=== PATIENT | male | born 1985 | race Caucasian/White ===

== ENCOUNTER 2021-09-11 22:15 | Emergency (ER) | payer OTHER, SELFPAY ==
[2021-09-11 22:26] VITALS: BP 151/130; PULSE 121; RESP 95; TEMP 36.8; O2SAT 96
[2021-09-11] MEDS: Balanced Salt Solution 15 ML BTL OP (22:42)
--- NOTE | 2021-09-11 22:57 | W.ED.GENAD ---
Discharge Plan Disposition Patient Disposition: HOME Condition: Stable Discharge Details Clinical Impression: Foreign body in eyeball, right Primary Care Provider: None,None ED Provider: Sabine Pappas Home Meds and New Rx's Prescriptions: No Action oxycodone 15 MG tablet 15 - 30 mg PO Q4H PRN PRNQty: 36 polyethylene glycol 3350 17 GM powder in packet 17 gm PO BID PRN PRN (Reason: Constipation) 0RF ibuprofen 800 MG tablet 800 mg PO TID Qty: 90 1RF acetaminophen [Mapap Extra Strength] 500 MG tablet 1,000 mg PO Q8H Qty: 100 3RF docusate sodium [Colace] 100 MG capsule 100 mg PO BID Qty: 20 0RF gabapentin 300 MG capsule 300 mg PO TID Qty: 90 1RF methadone 10 MG/ML concentrate 100 mg PO BID@0800,1800 0RF enoxaparin [Lovenox] 40 MG/0.4 ML syringe 40 mg Sub-Q DAILY@0800 Qty: 14 1RF naloxone [Narcan] 4 MG spray,non-aerosol 4 mg NS DIRECTED Qty: 2 0RF Rx Instructions: One spray (4mg) intranasally into one nostril. May repeat in new nostril once after initial dose in 2-3 minutes. Discharge Instructions Instructions: Eye Foreign Body (ED) Additional Instructions: Use the antibiotic ointment 4 times daily while awake. Wear sunglasses or patch the eye for comfort. Follow up with [facility] eye care Tuesday or , Call them first thing Tuesday am. Please take Tylenol or Ibuprofen with food every 4-6 hours as needed for pain and swelling. [facility] - [address] [place] [address] Stand Alone Forms: Work Release Medical Decision Making Foreign body visualized under [place] lamp exam with fluorescein. No uptake in diet. No abrasion noted. Does have multiple small specks noted around his pupil. No rust ring noted. 1 foreign body was removed with Q-tip. Unable to remove fully remove the other foreign bodies. Patient was given erythromycin ointment here in the department and instructed on home care and follow-up with [facility] on Tuesday or soon as possible. HPI General Mode of arrival: ambulatory. Date/Time Provider Initiated Documentation: 09/11/21 22:17. Limitations to Documentation: no limitations. Information obtained by: patient. HPI Narrative: Patient here with FB sensation to right eye which began at 8 p while grinding some metal while at work. He reports foreign body sensation to his eye and increase tearing and pain. He did not take any medications prior to arrival. He is somewhat diaphoretic upon initial exam. Pupil is PERRLA. Related Data Home Medications Medication Instructions Recorded Confirmed acetaminophen 500 mg tablet (Mapap 1,000 mg PO Q8H ##100 11/07/17 Extra Strength) docusate sodium 100 mg capsule 100 mg PO BID ##20 11/07/17 (Colace) enoxaparin 40 mg/0.4 mL 40 mg (0.4 mL) subcut DAILY@0800 11/07/17 subcutaneous syringe (Lovenox) ##14 gabapentin 300 mg capsule 300 mg PO TID ##90 11/07/17 ibuprofen 800 mg tablet 800 mg PO TID ##90 11/07/17 methadone 10 mg/mL oral concentrate 100 mg (10 mL) PO BID@0800,1800 11/07/17 naloxone 4 mg/actuation nasal 4 mg NS DIRECTED #2 sprays 11/07/17 spray (Narcan) polyethylene glycol 3350 17 gram 17 gm PO BID PRN PRN Constipation 11/07/17 oral powder packet oxycodone 15 mg tablet 15 - 30 mg PO Q4H PRN PRN #36 tabs 11/10/17 Previous Rx's Medication Instructions Recorded acetaminophen 500 mg tablet (Mapap 1,000 mg PO Q8H ##100 11/07/17 Extra Strength) docusate sodium 100 mg capsule 100 mg PO BID ##20 11/07/17 (Colace) enoxaparin 40 mg/0.4 mL 40 mg (0.4 mL) subcut DAILY@0800 11/07/17 subcutaneous syringe (Lovenox) ##14 gabapentin 300 mg capsule 300 mg PO TID ##90 11/07/17 ibuprofen 800 mg tablet 800 mg PO TID ##90 11/07/17 methadone 10 mg/mL oral concentrate 100 mg (10 mL) PO BID@0800,1800 11/07/17 naloxone 4 mg/actuation nasal 4 mg NS DIRECTED #2 sprays 11/07/17 spray (Narcan) polyethylene glycol 3350 17 gram 17 gm PO BID PRN PRN Constipation 11/07/17 oral powder packet Allergies Allergy/AdvReac Type Severity Reaction Status Date / Time No Known Allergies Allergy Unverified 11/04/17 16:03 General Stated Complaint: EyeProblem RAMANDEEP: 4 Review of Systems All systems reviewed & are unremarkable except as noted in HPI and below Eyes Eyes: Reports as per HPI, Reports irritation and Reports eye pain PFSH All Active Problems (Updated 09/11/21 @ 23:11 by Sabine Pappas) Foreign body in eyeball, right (Acute) Social History Smoking/Tobacco Use Status: Never Smoking risk assessment performed?: Yes Drug use: Never Do you feel safe in your relationship?: Yes Exam Eyes General: appearance normal, both eyes and all related structures Alignment and Position: alignment normal Periorbital: periorbital findings normal Eyelids: eyelids normal Conjunctivae: conjunctival abnormality right conjunctival injection diffuse Cornea: corneas abnormal on the right fluorescein used and foreign body (3 small specks) metallic and fluorescein used Pupils: PERRL Direct ophthalmoscopy: normal light reflex Eyes/upper lids images: 1. Foreign body visualized under fluorescein 2. Foreign Body noted 3. Foreign body, no abrasion, no rust ring Course Vital Signs Vital signs: Vital Signs Temperature 36.8 C 09/11/21 22:26 Pulse 121 H 09/11/21 22:26 Respiratory Rate 95 H 09/11/21 22:26 Blood Pressure 151/130 H 09/11/21 22:26 Pulse Oximetry 96 09/11/21 22:26 Temperature 36.8 C 09/11/21 22:26 Pulse 121 H 09/11/21 22:26 Respiratory Rate 95 H 09/11/21 22:26 Blood Pressure 151/130 H 09/11/21 22:26 Blood Pressure Position Sitting 09/11/21 22:26 Pulse Oximetry 96 09/11/21 22:26 Oxygen Delivery Method Room Air 09/11/21 22:26 Oxygen Flow Rate 0 09/11/21 22:26 Pain Level 0 09/11/21 22:26
[2021-09-11] MEDS: Erythromycin Ophth Oint 3.5 GM TUBE OD (23:07)
== END 2021-09-11 23:23 | disposition home or self-care (01) ==
PROVIDERS: Emergency Provider Registered Nurse Emergency
DX: T15.81XA Foreign body in other and multiple parts of external eye, right eye, initial encounter (principal); X58.XXXA Exposure to other specified factors, initial encounter
CPT/HCPCS: 99283

== ENCOUNTER 2022-02-08 19:33 | Emergency (ER) | payer MEDICAID, SELFPAY ==
[2022-02-08 19:55] VITALS: BP 127/77; PULSE 62; RESP 16; TEMP 36.8; O2SAT 98
--- NOTE | 2022-02-08 20:15 | DI.RAD_ITS ---
Exam(s) XR RIBS LT PA CHEST 3V EXAM: XR RIBS LT PA CHEST 3V CLINICAL HISTORY: fall, left lower rib pain TECHNIQUE: 2D digital imaging was performed. Three images are obtained. COMPARISON: CR CHEST 2 VIEWS PA,LAT from 07/13/2017 FINDINGS: MEDIASTINUM: Normal. HEART: Normal. PULMONARY VASCULATURE: Normal. LUNGS: Clear. PLEURAL SPACE: No pleural effusion or pneumothorax. BONE:Within normal limits for the patient's age. LEFT RIBS: Minimally displaced fractures involving the anterior aspects of the left 8th and 9th ribs. OTHER FINDINGS:Normal. IMPRESSION: 1. No acute pulmonary findings. 2. Minimally displaced fractures involving the anterior aspects of the left 8th and 9th ribs. 3. No pneumothorax. DATA REPOSITORY: RADIATION DOSE DELIVERED:
[2022-02-08] MEDS: Ketorolac 15 MG/ML VIAL IM (20:28)
--- NOTE | 2022-02-08 20:32 | ED.GENADUL_ITS ---
Discharge Plan Disposition Patient Disposition: HOME Condition: Improving Discharge Details Chief Complaint: Trauma Clinical Impression: Closed rib fracture Primary Care Provider: None,None ED Provider: Tito Parks Home Meds and New Rx's Prescriptions: No Action ibuprofen 800 MG tablet 800 mg PO TID Qty: 90 1RF methadone 10 MG/ML concentrate 120 mg PO BID@0800,1800 acetaminophen 500 mg Tablet 500 mg PO Q6H PRN Excedrin Migraine 250-250-65 mg Tablet 1 - 2 tab PO DAILY PRN Discharge Instructions Instructions: Rib Fracture (ED) Additional Instructions: Please follow-up with your primary care physician. Please return to the emergency department for any worsening symptoms. Medical Decision Making 36-year-old male presents over 1 week after falling down some stairs while drinking, fell onto his left side striking left chest wall, since then has had some numbness to anterior abdominal wall skin denies abdominal pain nausea vomiting does have residual chest discomfort at site of chest wall injury, tenderness to palpation mild in nature over left anterior lateral ribs no ecchymosis no crepitus, patient has normal chest wall excursion equal breath sounds bilaterally hemodynamically stable no ecchymosis noted. Consider rib contusion with neuropraxia of thoracic nerve versus rib fracture, low suspicion for intra-abdominal pathology such as ruptured spleen injured viscus or thoracic trauma such as pulmonary contusion or pneumothorax. Will obtain screening x-ray rib series, analgesia likely home with close follow-up 21: 58 evidence of eighth and ninth rib fracture of the left without pneumothorax. Patient resting comfortably feeling better after Toradol. Home care instructions and return precautions given HPI General Date/Time Provider Initiated Documentation: 02/08/22 19:59 . HPI Narrative: 36-year-old male presents approximately 1 week after falling down some stairs while he was drinking, fell to his left side hitting his left chest wall, since then has felt some numbness to his left anterior abdominal wall and pain to his left lower ribs. Denies nausea vomiting abdominal pain or other systemic signs of illness Related Data Home Medications Medication Instructions Recorded Confirmed ibuprofen 800 mg tablet 800 mg PO TID ##90 11/07/17 02/08/22 acetaminophen 500 mg tablet 500 mg PO Q6H PRN 02/08/22 02/08/22 [id number]-[id number]-[id number] 250 1 - 2 tab PO DAILY PRN 02/08/22 02/08/22 mg-250 mg-65 mg tablet (Excedrin Migraine) methadone 10 mg/mL oral concentrate 120 mg PO BID@0800,1800 02/08/22 02/08/22 Previous Rx's Medication Instructions Recorded ibuprofen 800 mg tablet 800 mg PO TID ##90 11/07/17 Allergies Allergy/AdvReac Type Severity Reaction Status Date / Time No Known Allergies Allergy Unverified 02/08/22 20:00 General Stated Complaint: Trauma RAMANDEEP: 4 Review of Systems Narrative: Review of Systems Constitutional: negative Eyes: negative ENT: negative Cardiovascular: negative Respiratory: negative Gastrointestinal: negative : negative Musculoskeletal: Chest wall discomfort Skin: Numbness to left Neurologic: negative Psych: negative PFSH All Active Problems (Updated 02/08/22 @ 21:59 by Tito Parks MD) Closed rib fracture (Acute) Social History Smoking/Tobacco Use Status: Current every day Tobacco Type: e-cigarettes Smoking risk assessment performed?: Yes Drug use: Rarely Substance use type: marijuana Do you feel safe in your relationship?: Yes Exam Narrative Exam Narrative: Physical Examination General: alert, awake, cooperative, resting comfortably, no acute distress HEENT: normocephalic, atraumatic; PERRL, EOM intact, conjunctiva normal; no nasal discharge; moist mucous membranes, oral and pharyngeal mucosa normal, tolerating secretions Neck: supple, trachea midline; full ROM Chest: normal to inspection, normal chest wall excursion, no ecchymosis or crepitus appreciated does have some point tenderness over lower anterior lateral ribs Respiratory: normal respiratory effort, speaking in full sentences, clear to auscultation, no wheezing, rales or rhonchi Cardiac: regular rate, regular rhythm, S1S2 intact, no murmurs rubs or gallops GI: abdomen soft, non-tender, non-distended; no palpable mass or hepatosplenomegaly Skin: no lesions, rashes or trauma appreciated Neuro: AAOx3, normal speech, moving all extremities Psych: Appropriate mood and affect Course Vital Signs Vital signs: Vital Signs Temperature 36.8 C 02/08/22 19:55 Pulse 62 02/08/22 19:55 Respiratory Rate 16 02/08/22 19:55 Blood Pressure 127/77 02/08/22 19:55 Pulse Oximetry 98 02/08/22 19:55 Temperature 36.8 C 02/08/22 19:55 Temperature Source Temporal Artery Scan 02/08/22 19:55 Pulse 62 02/08/22 19:55 Respiratory Rate 16 02/08/22 19:55 Respiratory Effort Non-Labored 02/08/22 20:08 Respiratory Depth Shallow 02/08/22 20:08 Respiratory Pattern Normal 02/08/22 20:08 Blood Pressure 127/77 02/08/22 19:55 Blood Pressure Position Sitting 02/08/22 19:55 Pulse Oximetry 98 02/08/22 19:55 Oxygen Delivery Method Room Air 02/08/22 19:55 Oxygen Flow Rate 0 02/08/22 19:55 Pain Level 5 02/08/22 20:28 PAWSS Have you Been Recently Intoxicated or Drunk Within the Last 30 days?: Yes Have you Ever Experienced Previous Episodes of Alcohol Withdrawal?: Yes Have you ever Experienced Withdrawal Seizures?: No Have you ever Experienced Delirium Tremens(DT)s?: No Have you ever undergone Alcohol Rehabilitation Treatment (i.e, inpt ot outpatient treatment programs)?: Yes Have you ever Experienced Blackouts?: Yes Have you ever Combined Alcohol with other Downers within the last 90 days?: No Have you ever Combined Alcohol with any other Substance of Abuse during the last 90 days?: No Positive Blood Alcohol level on Presentation? [PCS.BAL]: No Evidence of Increased Autonomic Activity (i.e. HR>120, tremor, sweating, agitation, nausea)?: No Result: 4
--- NOTE | 2022-02-08 21:31 | DI.VRAD_ITS ---
PROCEDURE INFORMATION: Exam: XR Left Ribs with PA Chest Exam date and time: 02/08/2022 8:38 PM Age: 36 years old Clinical indication: Injury or trauma; Rib area, left side; Blunt trauma; Injury date: 02/07/22; Injury details: Fall, left lower rib pain; Patient HX: Bb marker on site of most, pain goes around but at same level. No upper rib pain TECHNIQUE: Imaging protocol: Radiologic exam of the Left ribs with PA chest. Views: 3 views COMPARISON: CR CHEST 2 VIEWS PA,LAT 07/13/2017 10:03 AM FINDINGS: Lungs: Unremarkable. No consolidation. Pleural spaces: Unremarkable. No pleural effusion. No pneumothorax. Heart/Mediastinum: Unremarkable. No cardiomegaly. Bones/joints: Minimal left 8th and 9th rib fractures IMPRESSION: Minimal left 8th and 9th rib fractures. No pneumothorax Dictated and Authenticated by: Gerson Pro MD. Ordering:LEE Francis MD
== END 2022-02-08 22:02 | disposition home or self-care (01) ==
PROVIDERS: Emergency Provider Emergency Medicine
DX: S22.42XA Multiple fractures of ribs, left side, initial encounter for closed fracture (principal); F17.290 Nicotine dependence, other tobacco product, uncomplicated; Z79.82 Long term (current) use of aspirin; W10.9XXA Fall (on) (from) unspecified stairs and steps, initial encounter; Y93.89 Activity, other specified
CPT/HCPCS: 71101; 96372; 99284; J1885

== ENCOUNTER 2022-11-16 17:45 | Emergency (ER) | payer MEDICAID, SELFPAY ==
[2022-11-16 17:48] VITALS: BP 119/90; PULSE 74; RESP 18; TEMP 37; O2SAT 98
--- NOTE | 2022-11-16 18:04 | ED.GENADUL_ITS ---
Discharge Plan Disposition Patient Disposition: Home Condition: Good Discharge Details Chief Complaint: EyeProblem Clinical Impression: Abrasion of left cornea Primary Care Provider: Luis Miguel Ann ED Provider: Gerry Nicole Home Meds and New Rx's Prescriptions: No Action ibuprofen 800 MG tablet 800 mg PO TID Qty: 90 1RF methadone 10 MG/ML concentrate 120 mg PO BID@0800,1800 acetaminophen 500 mg Tablet 500 mg PO Q6H PRN Excedrin Migraine 250-250-65 mg Tablet 1 - 2 tab PO DAILY PRN Discharge Instructions Instructions: Corneal Abrasion (ED) Additional Instructions: At this time you have an abrasion in your left eye. Please apply the ointment 3 times per day. Please follow-up closely with Dr. Lainez. If you notice any worsening of your symptoms, or any new symptoms such as vomiting, diarrhea, fever, chills, shortness of breath, chest pain, numbness, weakness, or fainting , please return immediately to the emergency department for reevaluation. Please follow up with your primary care provider as soon as possible for reassessment and reevaluation. As always, it was a pleasure participating in your medical care today. Referrals: Luis Miguel Ann [Primary Care Provider] - [facility] [Outside] Medical Decision Making 37-year-old male presents today for pain in his left eye. Patient states that about 4 days ago he felt that there was a foreign body in his left eye, it continued for the next 2 days and then last night he took a Q-tip and was able to remove a strand of some brown-colored substance. After that he did develop mild crusting and swelling, and still feels irritation. Pain is located in the left lower aspect of his left eye and the right medial aspect of his left eye. He denies any significant vision changes. He is not a contact lens wear. He denies any recent welding or grinding. No other complaints at this time. No other modifying factors. Fluorescein stain demonstrates evidence of small corneal abrasion in the left lower aspect of the eye. No evidence of foreign body on the upper and lower lid. No evidence of foreign body in the eye. Patient otherwise stable. Will give erythromycin ointment, recommend continued watchful waiting as the eye does appear to be healing well. Discussed red flags for which to return. I have extensively reviewed the treatment plan and discharge instructions with the norma sidhu. I have addressed all patient concerns at this time. The patient was made aware of what symptoms to monitor for that would warrant a return to the emergency department. Discussed the plan with the patient, they demonstrate verbal understanding and agreement with our assessment and plan at this time. The documentation in this chart was dictated using [employer] dictation software. Please excuse any dictation errors. HPI General Date/Time Provider Initiated Documentation: 11/16/22 17:53 . HPI Narrative: 37-year-old male presents today for pain in his left eye. Patient states that about 4 days ago he felt that there was a foreign body in his left eye, it continued for the next 2 days and then last night he took a Q-tip and was able to remove a strand of some brown-colored substance. After that he did develop mild crusting and swelling, and still feels irritation. Pain is located in the left lower aspect of his left eye and the right medial aspect of his left eye. He denies any significant vision changes. He is not a contact lens wear. He denies any recent welding or grinding. No other complaints at this time. No other modifying factors. Related Data Home Medications Medication Instructions Recorded Confirmed ibuprofen 800 mg tablet 800 mg PO TID ##90 11/07/17 11/16/22 acetaminophen 500 mg tablet 500 mg PO Q6H PRN 02/08/22 11/16/22 [id number]-ugkztwtgbkswg-dcruyypg 250 1 - 2 tab PO DAILY PRN 02/08/22 11/16/22 mg-250 mg-65 mg tablet (Excedrin Migraine) methadone 10 mg/mL oral concentrate 120 mg PO BID@0800,1800 02/08/22 11/16/22 Previous Rx's Medication Instructions Recorded ibuprofen 800 mg tablet 800 mg PO TID ##90 11/07/17 Allergies Allergy/AdvReac Type Severity Reaction Status Date / Time No Known Allergies Allergy Unverified 11/16/22 18:05 General Stated Complaint: EyeProblem RAMANDEEP: 4 Review of Systems All systems reviewed & are unremarkable except as noted in HPI and below PFSH All Active Problems Abrasion of left cornea (Acute) Social History (Reviewed 11/16/22 @ 18:12 by JERSEY Geiger Smoking/Tobacco Use Status: Current every day Tobacco Type: e-cigarettes Smoking risk assessment performed?: Yes Alcohol Intake: current Alcohol Intake frequency: holidays/special occasions only Drug use: Rarely Substance use type: marijuana Do you feel safe in your relationship?: Yes Exam Narrative Exam Narrative: 1.Const: Well-nourished, Well-developed, appearing stated age 2.Eyes: Left eye: EOMI, PERRL, Peripheral vision intact. No nystagmus.No clinical signs of septal/orbital cellulitis, no redness around the eye, no proptosis. Minimal nontender puffiness of the upper and lower lids. No redness. No hyphema, no signs of trauma around the eye, no periorbital emphysema. No sluggishness of the pupil. No ophthalmoplegia. No afferent pupillary defect. Fluorescein exam is positive for corneal abrasion in the left lateral lower aspect of the eye. Minimal abrasion there. It appears to be well-healing with some epithelialization. Eversion of the upper and lower lid demonstrated no evidence of retained foreign body. Negative Christy sign. 3.ENT: Atraumatic external nose and ears. Moist MM. Neck: Symmetric, trachea midline, No thyromegaly. 4.CVS: +S1/S2, No murmurs or gallops. Peripheral pulses 2+ and equal in all extremities. Brisk capillary refill in all extremities. 5.RESP: Unlabored respiratory effort. Clear to auscultation bilaterally. No wheezes rales or rhonchi 6.GI: Soft, Nontender/Nondistended, No hepatosplenomegaly. No guarding or rebound. 7.MSK: Normocephalic/Atraumatic, Extremities w/o deformity or ttp No cyanosis or clubbing, Normal movement of all extremities 8.Skin: Warm, Dry. No rashes or lesions. 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 Sensation grossly intact, no focal neurologic deficits. 10.Psych: (AAO) x3. Appropriate mood and affect Course Vital Signs Vital signs: Vital Signs Temperature 37.0 C 11/16/22 17:48 Pulse 74 11/16/22 17:48 Respiratory Rate 18 11/16/22 17:48 Blood Pressure 119/90 11/16/22 17:48 Pulse Oximetry 98 07/18/23 17:48 Temperature 37.0 C 11/16/22 17:48 Temperature Source Oral 11/16/22 17:48 Pulse 74 11/16/22 17:48 Respiratory Rate 18 11/16/22 17:48 Respiratory Effort Normal, Non-Labored 11/16/22 17:58 Blood Pressure 119/90 11/16/22 17:48 Blood Pressure Position Sitting 11/16/22 17:48 Pulse Oximetry 98 11/16/22 17:48 Oxygen Delivery Method Room Air 11/16/22 17:48 Oxygen Flow Rate 0 11/16/22 17:48
[2022-11-16] MEDS: Fluorescein STRIPS 100/BOX 1 MG (18:07)
[2022-11-16] MEDS: Erythromycin Ophth Oint 3.5 GM TUBE OS (18:07)
[2022-11-16] MEDS: Tetracaine 0.5% 4 ML BTL (18:07)
[2022-11-16 18:08] VITALS: BP 119/90; PULSE 74; RESP 18; TEMP 37; O2SAT 98
== END 2022-11-16 18:12 | disposition home or self-care (01) ==
LOC: ER 18:10
PROVIDERS: Emergency Provider Student in an Organized Health Care Education/Training Program; PCP Physician Assistant Medical
DX: S05.02XA Injury of conjunctiva and corneal abrasion without foreign body, left eye, initial encounter (principal); X58.XXXA Exposure to other specified factors, initial encounter
CPT/HCPCS: 99282

== ENCOUNTER 2024-09-07 09:09 | Outpatient (CLI) | payer MEDICAID, SELFPAY ==
--- NOTE | 2024-09-07 09:00 | RT.EKG_ITS ---
APPROVED REPORT Exam: Resting ECG Reason for Exam: high risk medication use Patient Location: O HR:62 bpm ECG Measurements Heart Rate 62 AXIS AR 162 P 80 QRSd 93 QRS 53 QT 402 T 70 QTc 409 Conclusion Sinus rhythm...normal P axis, V-rate 50- 99 Right atrial enlargement...P>0.25mV 2 lds or<-0.24mV aVR/aVL Otherwise normal ECG
== END 2024-09-07 09:10 | disposition home or self-care (01) ==
PROVIDERS: PCP Physician Assistant Medical; Visit Provider Family Medicine
DX: Z79.899 Other long term (current) drug therapy (principal); I51.7 Cardiomegaly
CPT/HCPCS: 93005; 93010